=== PATIENT | female | born 1955 | race Caucasian/White ===

== ENCOUNTER → 2023-01-16 | Day surgery (SDC) | payer MEDICARE, BC ==
[2023-01-10 11:51] VITALS: BMI 35.1
[2023-01-10 11:59] LABS: Hemoglobin 8.3 g/dL (12.0-15.5); Mean Corpuscular HGB CONC 29.9 g/dL (32.0-36.0); Mean Corpuscular Hemoglobin 22.3 pg (27.0-33.0); Mean Corpuscular Volume 74.7 fl (81.6-98.3); Mean Platelet Volume 9.2 fl (7.4-10.4); Platelet Count 313 10x3/uL (150-450); RBC Distribution Width 16.5 % (11.5-14.5); Red Blood Cell (RBC) Count 3.72 10x6/uL (3.90-5.03); White Blood Cell (WBC) Count 7.8 10x3/uL (3.5-10.5)
[2023-01-10 12:01] LABS: Chloride 105 mmol/L (98-107); Potassium 5.3 mmol/L (3.5-5.1); Sodium 140 mmol/L (136-145)
[2023-01-10 12:05] LABS: INR-International Normal Ratio 1.4; Prothrombin Time 14.6 sec (9.5-12.1)
[2023-01-10 12:23] LABS: BUN (Urea Nitrogen) 14 mg/dL (9.8-20.1); Calc. Creatinine Clearance 83 mL/min (70-130); Calcium 8.9 mg/dL (7.8-10.44); Carbon Dioxide 24 mmol/L (23-31); Estimated GFR 68; Glucose 146 mg/dL (80-115)
[2023-01-10 13:43] LABS: Anion Gap 16 mmol/L (10-20)
[~2023-01-16] MED LIST: Heparin 10,000 UNITS/ 10 ML VIAL ONE; Heparin 25,000 units/D5W 0 ML ONE; Phenylephrine 10 MG/ML VIAL ONE; Protamine Sulfate 50 MG/5 ML VIAL ONE; SUGAMMADEX SODIUM 200 MG/2 ML VIAL ONE; fentaNYL 50 mcg/mL 1 mL Vial ONE
== END ==
LOC: SDC 06:04
PROVIDERS: ATTEND Internal Medicine Cardiovascular Disease
DX: I48.0 Paroxysmal atrial fibrillation (principal); I48.3 Typical atrial flutter
CPT/HCPCS: 80048; 85027; 85610; J1644; J2370; J2720; J3010

== ENCOUNTER 2023-04-30 08:19 | Day surgery (SDC) | payer MEDICARE, BC ==
[2023-04-26 14:19] VITALS: BMI 35.6
[2023-04-26 15:41] LABS: Hematocrit 39.3 % (34.9-44.5); Hemoglobin 12.3 g/dL (12.0-15.5); Mean Corpuscular HGB CONC 31.3 g/dL (32.0-36.0); Mean Corpuscular Hemoglobin 25.5 pg (27.0-33.0); Mean Corpuscular Volume 81.5 fl (81.6-98.3); Platelet Count 247 10x3/uL (150-450); RBC Distribution Width 23.1 % (11.5-14.5); Red Blood Cell (RBC) Count 4.82 10x6/uL (3.90-5.03); White Blood Cell (WBC) Count 7.3 10x3/uL (3.5-10.5)
[2023-04-26 16:00] LABS: Anion Gap 16 mmol/L (10-20); BUN (Urea Nitrogen) 15 mg/dL (9.8-20.1); Calc. Creatinine Clearance 83 mL/min (70-130); Carbon Dioxide 24 mmol/L (23-31); Chloride 102 mmol/L (98-107); Estimated GFR 68; Glucose 220 mg/dL (80-115); Potassium 4.7 mmol/L (3.5-5.1); Sodium 137 mmol/L (136-145)
[2023-04-30] MEDS ORDERED: Isoproterenol 0.2 MG/1 ML AMP ONE (09:41)
[2023-04-30] MEDS ORDERED: Heparin 10,000 UNITS/ 10 ML VIAL ONE (09:41)
[2023-04-30] MEDS ORDERED: Heparin 25,000 units/D5W 500 ML ONE (09:41)
[2023-04-30] MEDS ORDERED: Protamine Sulfate 50 MG/5 ML VIAL ONE (09:41)
[2023-04-30] MEDS ORDERED: Midazolam HCl 2 mg/2 ml Vial ONE (10:27)
[2023-04-30] MEDS ORDERED: fentaNYL 50 mcg/mL 1 mL Vial ONE ×2 (12:01→14:38)
[2023-04-30] MEDS ORDERED: PROPOFOL 200 MG/20 ML VIAL ONE (12:22)
[2023-04-30] MEDS ORDERED: Lidocaine 1% PF 5 ML VIAL ONE (12:22)
[2023-04-30] MEDS ORDERED: Dexamethasone 20 MG/5 ML VIAL ONE (12:22)
[2023-04-30] MEDS ORDERED: Rocuronium Bromide 10 MG/ML (10ML VIAL) ONE (12:22)
[2023-04-30] MEDS ORDERED: Ondansetron PF 4 MG/2 ML Vial ONE ×2 (12:22→16:39)
[2023-04-30] MEDS ORDERED: PHENYLEPHRINE-NS 100 MCG/ML 10 ML SYRINGE ONE ×2 (12:22→15:52)
[2023-04-30] MEDS ORDERED: Amiodarone 150 MG/3 ML VIAL ONE ×2 (15:35→15:52)
[2023-04-30] MEDS ORDERED: SUGAMMADEX SODIUM 200 MG/2 ML VIAL ONE (15:44)
[2023-04-30] MEDS ORDERED: Ketorolac Tromethamine 30 MG/ML VIAL ONE (16:27)
== END 2023-04-30 20:05 | disposition home or self-care (01) ==
LOC: SDC 08:19
PROVIDERS: ATTEND Internal Medicine Cardiovascular Disease
DX: I48.0 Paroxysmal atrial fibrillation (principal); G47.33 Obstructive sleep apnea (adult) (pediatric); E11.9 Type 2 diabetes mellitus without complications; I10 Essential (primary) hypertension; Z68.35 Body mass index [BMI] 35.0-35.9, adult; E66.9 Obesity, unspecified; Z79.84 Long term (current) use of oral hypoglycemic drugs; Z79.01 Long term (current) use of anticoagulants; Z79.899 Other long term (current) drug therapy; Z99.89 Dependence on other enabling machines and devices; Z88.1 Allergy status to other antibiotic agents; Z88.6 Allergy status to analgesic agent
CPT/HCPCS: 80048; 82962; 85027; 85347 ×2; 93005; 93622; 93623; 93655; 93656; 93657; C1732 ×2; C1760; C1894; J3010; 36416; J0282; J1100; J1644; J1885; J2250; J2405; J2704; J2720

== ENCOUNTER 2024-10-13 11:32 | Outpatient (CLI) | payer MEDICARE, BC | END 2024-10-13 11:33 | disposition home or self-care (01) | LOC: LABBT 11:32 | PROVIDERS: ATTEND Internal Medicine Cardiovascular Disease | DX: Z01.810 Encounter for preprocedural cardiovascular examination (principal); I48.0 Paroxysmal atrial fibrillation | CPT/HCPCS: 93005; 93010 ==

== ENCOUNTER 2025-04-22 09:29 | Day surgery (SDC) | payer MEDICARE, BC ==
[2025-04-21 09:23] VITALS: BMI 35.6
[2025-04-22 10:38] LABS: Anion Gap 14 mmol/L (10-20); BUN (Urea Nitrogen) 20 mg/dL (9.8-20.1); Calc. Creatinine Clearance 78 mL/min (70-130); Calcium 8.9 mg/dL (7.8-10.44); Carbon Dioxide 25 mmol/L (23-31); Chloride 103 mmol/L (98-107); Glucose 134 mg/dL (80-115); Potassium 4.6 mmol/L (3.5-5.1); Sodium 137 mmol/L (136-145)
[2025-04-22 10:40] LABS: INR-International Normal Ratio 2.3; PTT 38.4 sec (22.9-36.1); Prothrombin Time 25.7 sec (12.0-14.7)
[2025-04-22] MEDS ORDERED: PROPOFOL 200 MG/20 ML VIAL ONE (11:34)
[2025-04-22] MEDS ORDERED: Lidocaine 1% PF 5 ML VIAL ONE (11:34)
== END 2025-04-22 12:40 | disposition home or self-care (01) ==
LOC: SDC 09:29
PROVIDERS: ATTEND Internal Medicine Cardiovascular Disease
PROC: 5A2204Z Restoration of Cardiac Rhythm, Single (ICD-10-PCS; principal; 2025-04-22)
DX: I48.92 Unspecified atrial flutter (principal); I48.91 Unspecified atrial fibrillation; Z88.5 Allergy status to narcotic agent; Z88.6 Allergy status to analgesic agent; Z88.1 Allergy status to other antibiotic agents; Z91.048 Other nonmedicinal substance allergy status; Z79.01 Long term (current) use of anticoagulants
CPT/HCPCS: 80048; 85610; 85730; 92960; J2704; 93005; 93010